=== PATIENT | male | born 1995 | race Hispanic/Latino ===

== ENCOUNTER 2016-11-27 14:24 | Emergency (ER) | payer OTHER ==
[~2016-11-27] VITALS: Ht 190.5 cm; Wt 109.0 kg
[2016-11-27] MEDS ORDERED: IBUP-1114 PO (14:32)
[2016-11-27] MEDS ORDERED: TESS100C PO (16:04)
[2016-11-27] MEDS ORDERED: PROAAER10 INH (16:04)
[2016-11-27] MEDS ORDERED: ZOFR4TAB3 PO (16:04)
[2016-11-27 16:11] VITALS: BP 114/66
== END 2016-11-27 16:21 | disposition home or self-care (01) ==
LOC: M ED 14:24
DX: K52.9 Noninfective gastroenteritis and colitis, unspecified (principal); R05 Cough; J45.909 Unspecified asthma, uncomplicated; F17.210 Nicotine dependence, cigarettes, uncomplicated